=== PATIENT | male | born 1960 | race Caucasian/White ===

== ENCOUNTER 2022-03-01 15:15 | Emergency (ER) | payer MEDICARE, OTHER, SELFPAY ==
[2022-03-01 15:30] VITALS: BP 125/110; PULSE 82; RESP 22; O2SAT 93
[2022-03-01 15:32] VITALS: BP 125/100; PULSE 102; RESP 22; TEMP 36.8; O2SAT 92; BMI 22.4
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
--- NOTE | 2022-03-01 16:01 | CRLHL7_ITS ---
For Patients: As a result of the Century Cures Act, medical imaging exams and procedure reports are released immediately into your electronic medical record. You may view this report before your referring provider. If you have questions, please contact your health care provider. INDICATION: Chest pain. COPD. Dyspnea COMPARISON: October 05, 2019 TECHNIQUE: Single-view study an AP upright exam FINDINGS: TUBES AND LINES: None. HEART AND MEDIASTINUM: The heart size is normal. The mediastinal contour appears normal for patient age. LUNGS AND PLEURAL SPACES: Hyperinflation consistent with COPD. Left-sided granuloma.The pleural spaces are unremarkable.No acute focal findings OSSEOUS STRUCTURES: Age-appropriate appearance. No acute focal finding. IMPRESSION: COPD pattern without acute focal finding. Dictated by Benito Norwood MD @ 03/01/2022 5:31:07 PM (Electronically Signed)
[2022-03-01 16:15] VITALS: BP 128/80; PULSE 80; RESP 18; O2SAT 93
[2022-03-01] MEDS: IPRAT-ALBUT 0.5-2.5 MG/3 ML NEB 1 NEB IH (16:20)
[2022-03-01 16:30] LABS: Basophils Absolute Auto 0.04 K/uL (0.00-0.30); Basophils Percent Auto 0.5 % (0.0-3.0); Eosinophils Percent Auto 7.2 % (0.0-7.0); Hematocrit 41.5 % (37.0-53.0); Hemoglobin* 13.5 gm/dL (13.5-17.5); Immature Granulocytes Abs Auto 0.01 K/uL (0.00-0.30); Lymphocytes Percent Auto 18.8 % (20-44); Mean Corpuscular HGB Conc 33 gm/dL (32-36); Mean Corpuscular Hemoglobin 30 pg (26-34); Mean Corpuscular Volume 91 fL (80-100); Monocytes Percent Auto 7.2 % (0.0-11.0); Neutrophils Absolute Auto 5.04 K/uL (1.7-7.0); Neutrophils Percent Auto 66.2 % (42.0-72.0); Platelet Count* 289 K/uL (140-440); RDW Coefficient of Variation % 13.1 % (11.5-15.5); Red Blood Count 4.56 m/uL (4.30-5.90); White Blood Count* 7.62 K/uL (4.50-11.00)
[2022-03-01 16:34] LABS: HCO3 VBG 26 mmol/L (21-28); PCO2 VBG 41 mmHG (40-50); pH VBG 7.415 (7.32-7.43)
[2022-03-01 16:51] LABS: Lactate* 1.2 mmol/L (0.5-1.9)
[2022-03-01 16:57] LABS: D Dimer Quantitative* 0.41 ug/ml (0.00-0.50)
[2022-03-01 17:04] LABS: Albumin* 3.9 g/dL (3.3-5.0); Chloride* 106 mmol/L (96-114); Potassium* 4.4 mmol/L (3.6-5.1); Sodium* 138 mmol/L (135-149)
[2022-03-01 17:07] LABS: Alanine Aminotransferase* 21 U/L (4-50); Alkaline Phosphatase* 110 U/L (40-150); Aspartate Amino Transferase* 22 U/L (12-35); Bilirubin Total* 0.2 mg/dL (0.1-1.5); Blood Urea Nitrogen* 26 mg/dL (7-30); Carbon Dioxide* 26 mmol/L (20-32); Creatinine* 1.1 mg/dL (0.5-1.5); Est. Creatinine Clearance* 68.79; Estimated Glomerular Filt Rate 75.43; Glucose* 120 mg/dL (60-115); Total Protein* 6.7 g/dL (6.0-8.3)
[2022-03-01 17:08] LABS: Calcium* 8.9 mg/dL (8.4-10.6)
[2022-03-01 17:16] LABS: PCR FLU A Negative PCR FLU A (Negative); PCR FLU B Negative PCR FLU B (Negative); PCR RSV Negative PCR RSV (Negative)
[2022-03-01 17:27] LABS: SARS PCR* Negative SARS-CoV-2 (Negative)
[2022-03-01 17:30] VITALS: BP 125/82; PULSE 78; RESP 22; O2SAT 93
[2022-03-01 17:38] LABS: Troponin I* < 0.01 ng/mL (0.01-0.04)
--- NOTE | 2022-03-01 17:38 | ED.NURSE ---
patient is feeling better after the neb and is resting in the room with cell phone looking at.
[2022-03-01 18:00] VITALS: BP 130/79; PULSE 82; RESP 22; O2SAT 93
[2022-03-02 09:13] LABS: Slide Review Reflex No
== END 2022-03-01 18:25 | disposition home or self-care (01) ==
PROVIDERS: Emergency Provider Family Medicine; PCP Emergency Medicine
DX: J44.1 Chronic obstructive pulmonary disease with (acute) exacerbation (principal)
CPT/HCPCS: 36415; 71045; 80053; 82803; 83605; 84484; 85025; 85379; 87502; 87634; 87635; 93005; 94640; 99284; 99285

== ENCOUNTER 2024-05-09 12:31 | Emergency (ER) | payer MEDICARE, SELFPAY ==
[2024-05-09 12:41] VITALS: BP 151/99; PULSE 90; RESP 16; TEMP 36.9; O2SAT 97; BMI 21.7
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
== END 2024-05-09 13:25 | disposition home or self-care (01) ==
PROVIDERS: Emergency Provider Emergency Medicine; PCP Emergency Medicine
DX: S00.83XA Contusion of other part of head, initial encounter (principal); W50.0XXA Accidental hit or strike by another person, initial encounter
CPT/HCPCS: 99283

== ENCOUNTER 2024-12-18 16:04 | Outpatient (CLI) | payer OTHER, SELFPAY | END 2024-12-18 16:05 | disposition home or self-care (01) | PROVIDERS: PCP Emergency Medicine; Visit Provider Emergency Medicine | DX: R63.4 Abnormal weight loss (principal); R10.13 Epigastric pain; Z12.5 Encounter for screening for malignant neoplasm of prostate; Z13.6 Encounter for screening for cardiovascular disorders | CPT/HCPCS: 80048; 80061; 80076; 84443; 86140; G0103 ==

== ENCOUNTER 2024-12-31 06:45 | Outpatient (CLI) | payer OTHER, SELFPAY ==
--- NOTE | 2024-12-31 07:15 | CRLHL7_ITS ---
For Patients: As a result of the Cures Act, medical imaging exams and procedure reports are released immediately into your electronic medical record. You may view this report before your referring provider. If you have questions, please contact your health care provider. Examination: US abdominal aorta Indication: History of tobacco use. Abdominal aortic aneurysm screening. Technique: Ruiz scale and color Doppler images of the aorta and common iliac arteries are obtained. Comparison: None Findings: Proximal aorta: 2.8 x 2.8 cm Mid aorta: 2.2 x 2.3 cm Distal aorta: 1.7 x 1.8 cm Right common iliac artery: 1.2 x 1.3 cm Left common iliac artery: 1.3 x 1.1 cm Diffuse atherosclerotic changes are present. Impression: No abdominal aortic aneurysm. Dictated by Jorge Vallejo MD @ 12/31/2024 9:30:20 AM (Electronically Signed)
--- NOTE | 2024-12-31 09:00 | CRLHL7_ITS ---
For Patients: As a result of the Century Cures Act, medical imaging exams and procedure reports are released immediately into your electronic medical record. You may view this report before your referring provider. If you have questions, please contact your health care provider. Indication: ABNORMAL WEIGHT LOSS Technique: CT Chest/Abd/Pelvis W/ 69CC ISOVUE 370 intravenous contrast Please note that all CT scans at this facility use dose modulation, iterative reconstruction, and/or weight-based dosing when appropriate to reduce radiation dose to as low as reasonably achievable. Comparison: None Findings: In the chest, nodule with somewhat irregular margins within the right lower lobe measures 4.4 millimeters, 3/95. Nodule within the right middle lobe measures 5.7 millimeters, 3/66. Calcified granulomas within the lingula. Calcified mediastinal lymph nodes are present representing sequela of granulomatous disease. Atherosclerotic changes. Biapical pleural-parenchymal scarring with emphysema. There is a microlobulated nodule in the right lung apex which measures 8.4 millimeters, series 4, image 95. Mildly prominent right hilar lymph node measures 1.3 cm. In the abdomen, there is no intrahepatic mass. The gallbladder is partially distended. No biliary obstruction or calcified stone. Calcified splenic granulomas are present. No adrenal mass. Nonobstructing 3 millimeter left renal calculus. No perinephric stranding or perinephric fluid. Pancreatic duct is mildly ectatic but tapers normally in the pancreatic head. Atherosclerotic changes. No aneurysm. No retroperitoneal or mesenteric adenopathy. No gastric outlet obstruction. In the pelvis, the bladder is partially distended and appears normal. The prostate is mildly heterogeneous. Moderately increased stool in the colon. No dilated small bowel loops. No free air or free fluid. No abscess. Postop changes of left inguinal hernia repair. No inguinal or pelvic adenopathy. No vertebral body compression fracture. Facet degeneration lower lumbar spine with grade 1 degenerative spondylolisthesis of L4 on L5. Bulging of the L4-5 disc. Degenerative joint disease at both hips. Impression: Suspicious microlobulated nodule in the right lung apex measuring 8.4 millimeters in the setting of emphysema. Smaller nodules are present elsewhere including an irregular nodule in the right lower lobe measuring 4.4 millimeters. Mildly prominent right hilar lymph node also present. CT PET recommended for further evaluation. Mildly ectatic pancreatic duct without evidence of pancreatic mass. Nonobstructing left renal calculus. Sequela of granulomatous disease. Please note that all CT scans at this facility use dose modulation, iterative reconstruction, and/or weight-based dosing when appropriate to reduce radiation dose to as low as reasonably achievable. Dictated by Jorge Vallejo MD @ 12/31/2024 12:34:12 PM (Electronically Signed)
== END 2024-12-31 06:46 | disposition home or self-care (01) ==
LOC: US 06:45
PROVIDERS: PCP Emergency Medicine; Visit Provider Emergency Medicine
DX: Z13.6 Encounter for screening for cardiovascular disorders (principal); Z72.0 Tobacco use; R63.4 Abnormal weight loss; R91.8 Other nonspecific abnormal finding of lung field; N20.0 Calculus of kidney
CPT/HCPCS: 71260; 74177; 76706; Q9967

== ENCOUNTER 2025-01-30 13:09 | Outpatient (CLI) | payer OTHER, SELFPAY ==
--- NOTE | 2025-01-30 13:30 | CRLHL7_ITS ---
For Patients: As a result of the 21st Century Cures Act, medical imaging exams and procedure reports are released immediately into your electronic medical record. You may view this report before your referring provider. If you have questions, please contact your health care provider. EXAM: FDG PET-CT Whole Body CLINICAL INFORMATION: 64-year-old man with history of lung nodule. PET CT ordered for additional characterization. TECHNIQUE: Radiopharmaceutical: 18F-fluorodeoxyglucose (18F-FDG) Dose: 11.51 milliCurie. Blood glucose: 79 mg/dL. Image acquisition: At approximately 60 minutes following IV tracer administration via a right hand vein, positron emission tomography was performed from the vertex of the skull to the feet. Non-contrast low-dose helical CT imaging was performed over the same range without breath-hold for attenuation correction of PET images and anatomic correlation; it is neither sufficient, nor should it be substituted for diagnostic purposes. COMPARISON: CT chest abdomen pelvis 12/31/2024 FINDINGS: Mediastinal blood pool FDG uptake: SUVMax 2.2 (image 150) Liver background parenchymal FDG uptake: SUVMax 2.9 (image 206) PET Findings: No focal FDG uptake at a spiculated 1.0 x 0.8 cm pulmonary nodule in the apical right upper lobe SUVMax 0.8 (22:113, 301:115), contiguous with pleural-parenchymal scarring in right upper lobe more superiorly. Faintly FDG avid 1.2 cm linear opacity in the medial right lower lobe (image 195) corresponds to subsegmental atelectasis previously visualized on the CT from 12/31/2024. No abnormal FDG avid lymphadenopathy. No abnormal FDG uptake in the visualized skeleton. Tracer uptake elsewhere is physiologic. Non-PET findings: Scattered mucous plugging. Biapical pleural-parenchymal scarring. Subcentimeter pulmonary nodules, for example a 0.5 cm nodule in the right middle lobe (202:157), too small to characterize. Upper lung predominant centrilobular and paraseptal emphysema. Sequela of granulomatous disease. Coronary artery calcifications. Atherosclerotic calcifications of the thoracic and abdominal aorta. Colonic diverticulosis. Prostatomegaly. Multilevel degenerative changes in the spine. IMPRESSION: 1. No focal FDG uptake at a spiculated 1.0 cm pulmonary nodule in the apical right upper lobe, contiguous with pleural-parenchymal scarring more superiorly in the right apical upper lobe. No definite evidence to support a metabolically active primary lung neoplasm. 2. No evidence of FDG avid malignancy. Dictated by Osito Dos Santos MD @ 01/31/2025 3:29:29 PM (Electronically Signed)
== END 2025-01-30 13:10 | disposition home or self-care (01) ==
LOC: RAD 13:10
PROVIDERS: PCP Emergency Medicine; Visit Provider Emergency Medicine
DX: R91.1 Solitary pulmonary nodule (principal)
CPT/HCPCS: 78816; A9552

== ENCOUNTER 2025-07-30 19:15 | Emergency (ER) | payer OTHER, SELFPAY ==
--- OUTSIDE RECORDS SUMMARY | 2025-07-30 19:18 | XMS_ITS | Clinical Summary ---
Author Organization [facility] Address [address] [place] [id number] Care Team Providers Care Supervisor Advertising Dispatch Clerks Name Role Phone Pcp, No Primary Care Provider Unavailabl e Allergies No known active allergies Medications MedicationSigDispense QuantityRefillsLast FilledStart DateEnd DateStatus COMBIVENT RESPIMAT 20-100 mcg/actuation inhaler INHALE 1 PUFF BY MOUTH 4 TIMES [id number] albuterol HFA (PRO-AIR; VENTOLIN; PROVENTIL) 90 mcg/actuation inhaler 2 Puffs every 4 hours if needed.01/02/2021ctive tamsulosin (FLOMAX) 0.4 mg capsule Indications:Benign prostatic hyperplasia with urinary frequencyTake 1 Capsule (0.4 mg) by mouth once daily after a meal. 30 Capsule 1101Active Active Problems No known active problems Immunizations ImmunizationAdministration DatesNext OgfUkbb8801/29/2014 Social History Tobacco UseTypesPacks/DayYears UsedDateSmoking Tobacco: Every DayCigarettes Smokeless Tobacco: Never Tobacco Cessation:Ready to Q uit: Yes; Counseling Given: Yes Comments:about 2 cigg per day Alcohol UseStandard Drinks/WeekCommentsYes0 (1 standard drink = 0.6 oz pure alcohol)Sex and Gender InformationValueDate RecordedSex Assigned at BirthNot on fileLegal VyhYniz1809/03/2012 6:21 AM CSTGender IdentityNot on fileSexual OrientationNot on file Last Filed Vital Signs Vital SignReadingTime TakenCommentsBlood Zyuqjbww486/7906 1:15 PM CDT Ydayw4301 1:15 PM WCPExyqukceasm90.5 ??C (97.7 ??F)03/23/2019 1:32 PM CDTRespiratory Srmp1042 1:15 PM CDTOxygen Uihraxwtnj26%02/17/2021 1:15 PM CDTInhaled Oxygen Concentration--Zxdcbr37.9 kg (156 lb 4.8 oz)02/17/2021 1:15 PM CDTPt weighed with shoes on.Inbdve678.3 cm (5' 11)03/23/2019 1:32 PM CDTBody Mass Index21.808 1:32 PM CDT Plan of Treatment Health MaintenanceDue DateLast DoneCommentsDepression screening for age 12+ 1970Hepatitis C screening for age 18-Colonoscopy through age 7507/25/2003Lipids for age 45-Pneumococcal series for age 50+ (1 of 1 - PCV)2008Zoster (shingles) series for age 50+ (1 of 2)2008MI (ht and wt on same day) for age 18+, 03/16/2019, 03/14/2019 Tetanus numcmcs59COVID-19 vaccine series ( - 2024- season) 2025Influenza Vaccine (#1)2025RSV vaccine for adults or (1 - 1-dose 75+ series)2033Hepatitis B series for 19+Aged OutNo longer eligible based on patient's age to complete this topic Insurance Care Teams Team MemberRelationshipSpecialtyStart DateEnd Date Aleta Ribeiro - General03/14/19
[2025-07-30 19:24] VITALS: BP 148/93; PULSE 93; RESP 28; TEMP 36.3; O2SAT 96; BMI 20.5
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
[2025-07-30 19:50] LABS: Hematocrit* 38.9 % (37.0-53.0); Hemoglobin* 12.7 gm/dL (13.5-17.5); Immature Granulocytes Pct Auto 0.3 %; Mean Corpuscular HGB Conc 33 gm/dL (32-36); Mean Corpuscular Hemoglobin 30 pg (26-34); Mean Corpuscular Volume 92 fL (80-100); RDW Coefficient of Variation % 12.5 % (11.5-15.5); Red Blood Count* 4.22 m/uL (4.30-5.90); White Blood Count* 13.80 K/uL (4.50-11.00)
[2025-07-30 19:54] LABS: Immature Granulocytes Abs Auto 0.00 K/uL (0.00-0.30); Lymphocytes Absolute Auto 1.70 K/uL (0.90-2.90); Slide Review Reflex No
[2025-07-30 20:02] VITALS: RESP 24
--- OUTSIDE RECORDS SUMMARY | 2025-07-30 20:03 | XMS_ITS | CCD ---
Author Organization Unknown Care Team Providers Care Power Wood Sawyer Name Role Phone [employer] [place], [place] Primary Care Provider Unava ilable Unavailable Chronic Care Management Unavaila ble Summary Purpose DataExchange Insurance Providers Payer name Policy type / Coverage type Covered constitution party ID Effective Begin Date Effective End Date Medicare [place] Medicare Part B [id number] Unknown Unknown [facility] Medicare Part B [id number] Unknown Unknown Family History Family History data not found Medication Administered No Medication Administered data Medical Equipment No Medical Equipment data Assessments No Assessment data Reason For Visit No Reason For Visit data Review of Systems No Review of Systems data Physical Exam No Physical Exam data History of Present Illness No History of Present Illness data Advance Directives No Advance Directive data
--- OUTSIDE RECORDS SUMMARY | 2025-07-30 20:03 | XMS_ITS | CCD ---
Author Name Interface, [id number] lity Address [address] [place] [id number] [facility] Address [facility] [place] [address] Care Plan Date Type Value 02/24/2025 APPOINTMENT NEW PT CONSULT 3 0 MIN Reason for Visit NEW PT CONSULT 30 MIN Diagnostic Results Date Type Test Units Lower Limit Upper Limit Result Flag Comments Status Ordered By Specimen Source Lab Address 01/15/2025 Misc other labSee attached Social History Date Name Value 01/15/2025 Sex Male Sexual Orientation Choose not to disclose 04/26/2025 Gender Identity Identifies as amado [email or web address]
[2025-07-30 20:05] LABS: Chloride* 93 mmol/L (96-114); Potassium* 4.4 mmol/L (3.6-5.1); Sodium* 131 mmol/L (135-149)
[2025-07-30 20:08] LABS: Anion Gap 9 mEq/L (7-15); Blood Urea Nitrogen* 25 mg/dL (7-30); Calcium* 8.7 mg/dL (8.4-10.6); Carbon Dioxide* 29 mmol/L (20-32); Creatinine* 1.1 mg/dL (0.5-1.5); Est. Creatinine Clearance* 59.79; Estimated Glomerular Filt Rate 74 ml/min; Glucose* 108 mg/dL (60-115)
[2025-07-30 20:16] LABS: Lactate* 0.9 mmol/L (0.5-1.9)
== END 2025-07-30 21:21 | disposition home or self-care (01) ==
PROVIDERS: Emergency Provider Student in an Organized Health Care Education/Training Program
DX: T24.102A Burn of first degree of unspecified site of left lower limb, except ankle and foot, initial encounter (principal); T24.101A Burn of first degree of unspecified site of right lower limb, except ankle and foot, initial encounter; T31.0 Burns involving less than 10% of body surface; X03.0XXA Exposure to flames in controlled fire, not in building or structure, initial encounter
CPT/HCPCS: 36415; 80048; 83605; 85025; 87040; 99283; 99284; A9270